=== PATIENT | male | born 1990 | race Caucasian/White ===

== ENCOUNTER → 2024-02-03 06:44 | Outpatient (REF) | payer BC, SELFPAY | LOC: HWRAD 06:44 | PROVIDERS: ATTENDING PHYSICIAN Nurse Practitioner Family | DX: R10.33 Periumbilical pain (principal); R19.09 Other intra-abdominal and pelvic swelling, mass and lump | CPT/HCPCS: 76705 ==

== ENCOUNTER → 2025-04-18 14:56 | Outpatient (REF) | payer BC, SELFPAY | LOC: HWRAD 14:56 | PROVIDERS: ATTENDING PHYSICIAN Internal Medicine | DX: M25.551 Pain in right hip (principal) | CPT/HCPCS: 73502 ==